=== PATIENT | female | born 2000 | race Hispanic/Latino ===

== ENCOUNTER 2024-01-07 12:22 | Emergency (ER) | payer SELFPAY ==
[2024-01-07] MEDS ORDERED: Boostrix 0.5 ML (Tdap) VIAL (>/=7 yrs of age) ONE (12:42)
== END 2024-01-07 12:48 | disposition home or self-care (01) ==
LOC: ERS 12:22
DX: T22.111A Burn of first degree of right forearm, initial encounter (principal); T21.13XA Burn of first degree of upper back, initial encounter; T21.14XA Burn of first degree of lower back, initial encounter; T24.112A Burn of first degree of left thigh, initial encounter; T24.111A Burn of first degree of right thigh, initial encounter; T31.0 Burns involving less than 10% of body surface; Z23 Encounter for immunization; X12.XXXA Contact with other hot fluids, initial encounter
CPT/HCPCS: 90471; 90715